=== PATIENT | female | born 1945 | race Caucasian/White ===

== ENCOUNTER 2016-07-10 18:36 | Emergency (ER) | payer OTHER ==
[~2016-07-10] VITALS: Ht 160 cm; Wt 64.0 kg
[2016-07-10 18:46] VITALS: Ht 160 cm; Wt 64.0 kg
[2016-07-10] MEDS ORDERED: HYDR-906 PO (19:27)
[2016-07-10] MEDS ORDERED: ACYC800T57 PO (19:27)
--- NOTE | 2016-07-10 20:05 | ERD ---
ER Documentation Chief Complaint Date/Time DATE: 07/10/16 TIME: 20:03 Chief Complaint rash on R arm since wednesday that is getting worse HPI This is a 71-year-old female presents to the ER with a rash that started on Wednesday on her right arm. Patient states that the rash is very painful and feels as if someone is burning her, even [place] bothers. She has not had any fevers or chills. Patient denies any other symptoms. Patient went to her primary care doctor and she was given clotrimazole. ROS 12 point review of systems was done, all negative except per HPI. Medications Home Meds Active Scripts Hydrocodone/Acetaminophen ([place] 5-325 Tablet) 1 Each Tablet, 1 TAB PO Q6H Y for PAIN for 3 Days, #20 TAB Prov:JOYCE CARVALHO 07/10/16 Acyclovir* (Zovirax*) 800 Mg Tablet, 800 MG PO 5 TIMES DAILY for 7 Days, TAB Prov:JOYCE CARVALHO 07/10/16 Physical Exam Vitals Vital Signs Date Time Temp Pulse Resp B/P Pulse Ox O2 Delivery O2 Flow Rate FiO2 07/10/16 18:46 98.7 55 16 130/62 99 Physical Exam GENERAL: The patient is well developed and appropriate for usual state of health , in no apparent distress. HEENT: Atraumatic. . CHEST: Clear to auscultation bilaterally. There are no rales, wheezes or rhonchi. HEART: Regular rate and rhythm. No murmurs, clicks, rubs or gallops. NEURO: Alert and oriented. SKIN: There is a vesicular rash along the right arm in a dermatomal fashion. Procedures/MDM Differential Diagnosis: dermatitis, allergic urticaria, viral exanthem, insect bite, fungal infectio ,viral exanthem, hand foot mouth disease, , impetigo, cellulitis, abscess, priyanka adolfo syndrome, meningocemia, necrotizing fasciitis, myositis. At this time patient appears to have shingles. There is no evidence of systemic infection. Patient afebrile and well-appearing. Suspicion for allergic reaction is low. Patient will be sent home with acyclovir and with [place]. She is to follow-up with her primary care doctor within 1-2 days or return to ER sooner symptoms worsen. My medical student making [place] with the patient and her daughter. Both understand agree with plan. Departure Diagnosis: Primary Impression: Shingles Condition: Stable Patient Instructions: Shingles (Herpes Zoster) Additional Instructions: Call your primary care doctor TOMORROW for an appointment during the next 1-2 days.See the doctor sooner or return here if your condition worsens before your appointment time. JOYCE CARVALHO Jul 10, 2016 20:05
== END 2016-07-10 19:38 | disposition home or self-care (01) ==
LOC: E/R 18:36
DX: B02.9 Zoster without complications (principal)
CPT/HCPCS: 99283